=== PATIENT | male | born 1985 | race Caucasian/White ===

== ENCOUNTER 2017-10-16 08:20 | Inpatient (IN) | payer SELFPAY ==
--- NOTE | 2017-10-16 09:28 | ER Document Report ---
ED Medical Screen (RME) - General Chief Complaint: Chest Pain Stated Complaint: CHEST AND ABDOMINAL PAIN Time Seen by Provider: 10/16/17 09:20 Notes: 32-year-old male patient past history of abdominal DVTs, no longer on blood thinners. Does have some chronic pain issues. Previously was on chronic steroids for hematologic reasons, is no longer on steroids. He does suffer from GERD. He reports epigastric chest pain for the past 3 days with some nausea no vomiting. He reported black stools however has been taking Pepto- Bismol. He states he has been constipated and his last bowel movement was about a week ago. Exam shows abdomen to be morbidly obese, soft, some tenderness in the right and left lower quadrants, very tender in the epigastric hypogastric region of the abdomen. Did not appear to be tender in the right upper quadrant. I have greeted and performed a rapid initial assessment of this patient. A comprehensive ED assessment and evaluation of the patient, analysis of test results and completion of the medical decision making process will be conducted by additional ED providers. TRAVEL OUTSIDE OF THE [place] IN LAST 30 DAYS: No - Related Data Allergies/Adverse Reactions: No Known Allergies Allergy (Verified 10/16/17 08:20) Home Medications: Current Home Medications No Home Medications 10/16/17 [History] Past Medical History - Social History Chew tobacco use (# tins/day): No Frequency of alcohol use: None Drug Abuse: None Renal/ Medical History: Denies: Hx Peritoneal Dialysis - Immunizations Hx Diphtheria, Pertussis, Tetanus Vaccination: Yes Physical Exam - Vital signs Vitals: Temp Pulse Resp BP Pulse Ox 98.7 F 91 22 H 143/106 H 97 10/16/17 08:25 10/16/17 08:25 10/16/17 08:25 10/16/17 08:25 10/16/17 08:25 Course - Vital Signs Vital signs: Temp Pulse Resp BP Pulse Ox 98.7 F 91 22 H 143/106 H 97 10/16/17 08:25 10/16/17 08:25 10/16/17 08:25 10/16/17 08:25 10/16/17 08:25
[2017-10-16] MEDS ORDERED: MAG HYDROX/AL HYDROX/SIMETH SUSP 30 ML UDCUP PO ONE (09:35)
[2017-10-16] MEDS ORDERED: LIDOCAINE 2% VISCOUS SOLN 20 ML UDCUP PO ONE (09:35)
[2017-10-16 09:49] LABS: ABSOLUTE BASOPHILS # (AUTO) 0.1 10^3/uL (0.0-0.2); ABSOLUTE EOSINOPHILS # (AUTO) 0.4 10^3/uL (0.0-0.6); ABSOLUTE LYMPHOCYTES (AUTO) 2.2 10^3/uL (0.5-4.7); ABSOLUTE NEUT (AUTO) 8.5 10^3/uL (1.7-8.2); BASOPHILS % (AUTO) 0.9 % (0-2); EOSINOPHILS % (AUTO) 3.6 % (0-6); HEMATOCRIT 54.3 % (37.9-51.0); HEMOGLOBIN 18.7 g/dL (13.5-17.0); LYMPHOCYTES % (AUTO) 17.9 % (13-45); MEAN CORPUSCULAR HEMOGLOBIN 30.4 pg (27.0-33.4); MEAN CORPUSCULAR HGB CONC 34.4 g/dL (32.0-36.0); MEAN CORPUSCULAR VOLUME 88 fl (80-97); MONOCYTES % (AUTO) 7.8 % (3-13); PLATELET COUNT 502 10^3/uL (150-450); RED BLOOD COUNT 6.15 10^6/uL (4.35-5.55); RED CELL DISTRIBUTION WIDTH 15.6 % (11.5-14.0); SEGMENTED NEUTROPHILS % (AUTO) 69.8 % (42-78); TOTAL CELLS COUNTED % (AUTO) 100 %; WHITE BLOOD COUNT 12.2 10^3/uL (4.0-10.5)
[2017-10-16 10:06] LABS: ALANINE AMINOTRANSFERASE 258 U/L (21-72); ALBUMIN 4.8 g/dL (3.5-5.0); ALKALINE PHOSPHATASE 145 U/L (38-126); ANION GAP 13 (5-19); ASPARTATE AMINO TRANSFERASE 357 U/L (17-59); BLOOD UREA NITROGEN 12 mg/dL (7-20); CALCIUM 10.5 mg/dL (8.4-10.2); CARBON DIOXIDE 28 mmol/L (22-30); CHLORIDE 101 mmol/L (98-107); GLUCOSE 107 mg/dL (75-110); LIPASE 102.8 U/L (23-300); POTASSIUM 4.9 mmol/L (3.6-5.0); TOTAL PROTEIN 8.4 g/dL (6.3-8.2)
--- NOTE | 2017-10-16 10:19 | RADIOLOGY REPORT (SQ) ---
EXAM DESCRIPTION: ACUTE ABDOMEN SERIES COMPLETED DATE/TIME: 10/16/2017 10:08 am REASON FOR STUDY: epigastric pain, constipation COMPARISON: CT abdomen pelvis 07/14/2015, 08/24/2015, 01/20/2016 NUMBER OF VIEWS: Three views. TECHNIQUE: Frontal chest, supine abdomen and upright abdomen radiographic images acquired. LIMITATIONS: None. FINDINGS: CHEST: Lungs clear of infiltrates. No pleural effusions. No pneumothorax. Cardiac silho uette size, brenda unremarkable. FREE AIR: None. No abnormal gas collections. BOWEL GAS PATTERN: Nonobstructive pattern. No dilated loops or air fluid levels. Moderate to large a mount of stool in the hepatic flexure and transverse colon. CALCIFICATIONS: No suspicious calcifications. HARDWARE: None in the abdomen. SOFT TISSUES: No gross mass or suggestion of organomegaly. BONES: No acute fracture. No worrisome bone lesions. OTHER: No other significant finding. IMPRESSION: NO RADIOGRAPHIC EVIDENCE FOR ACUTE ABDOMINAL DISEASE. Moderate to large amount of stool in the hepatic flexure and transverse colon TECHNICAL DOCUMENTATION: JOB ID: [id number] [employer]- All Rights Reserved
[2017-10-16] MEDS ORDERED: ONDANSETRON HCL INJ/PF 4 MG/2 ML SDV IV ONE (10:41)
[2017-10-16] MEDS ORDERED: MORPHINE SULFATE 10 MG/ML INJ IV ONE ×3 (10:42→14:39)
[2017-10-16] MEDS ORDERED: FAMOTIDINE INJ/PF 20 MG/2 ML SDV IV ONE ×2 (10:42→18:45)
[2017-10-16 10:50] LABS: APPEARANCE,URINE CLEAR; BILIRUBIN,URINE SMALL (NEGATIVE); COLOR,URINE AMBER; GLUCOSE, URINE NEGATIVE (NEGATIVE); KETONES,URINE NEGATIVE (NEGATIVE); LEUKOCYTE ESTERASE,URINE NEGATIVE (NEGATIVE); NITRITE,URINE NEGATIVE (NEGATIVE); PROTEIN,URINE 30 mg/dL (NEGATIVE); URINE SPECIFIC GRAVITY 1.018
[2017-10-16] MEDS: RINGERS SOLUTION,LACTATED 1,000 ML IV PRN ×2 (10:50→15:53)
--- NOTE | 2017-10-16 11:01 | ER Document Report ---
ED GI/ - General Chief Complaint: Chest Pain Stated Complaint: CHEST AND ABDOMINAL PAIN Time Seen by Provider: 10/16/17 09:20 Notes: Patient is here complaining of pain in the epigastric region of his abdomen which started Sunday. He says the pain is constant and sharp and goes through into his back. He has had this previously, but not this bad. Denies fever. Nauseated but not vomiting. Has not had any diarrhea. Has felt constipated during the past week. He had a bowel movement yesterday. Has not seen any blood in his stools. His stools have been black, but he started taking Pepto- Bismol on Sunday. No history of any gastrointestinal diseases or GI bleeding. 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 Patient says he had a blood clot in his "stomach" after he had a splenectomy. Was on Xarelto for a while, but not currently on any anticoagulants. Denies diabetes, hypertension, heart disease, etc. Denies alcohol intake. TRAVEL OUTSIDE OF THE [place] IN LAST 30 DAYS: No - Related Data Allergies/Adverse Reactions: No Known Allergies Allergy (Verified 10/16/17 08:20) Home Medications: Current Home Medications No Home Medications 10/16/17 [History] Past Medical History - Social History Smoking Status: Current Every Day Smoker Chew tobacco use (# tins/day): No Frequency of alcohol use: None Drug Abuse: None Family History: Reviewed & Not Pertinent Patient has suicidal ideation: No Patient has homicidal ideation: No Past Surgical History: Reports: Hx Abdominal Surgery - Splenectomy 2015 - Immunizations Hx Diphtheria, Pertussis, Tetanus Vaccination: Yes Hx Pneumococcal Vaccination: 05/11/15 Review of Systems - Review of Systems Notes: REVIEW OF SYSTEMS: CONSTITUTIONAL : Denies fever. EENT: Denies eye, ear, nose or mouth or throat pain or other symptoms. CARDIOVASCULAR: Denies chest pain. RESPIRATORY: Says he has difficulty breathing, but denies cough, chest congestion. GASTROINTESTINAL: See HPI. GENITOURINARY: Denies difficulty or painful urinating, urinary frequency, blood in urine. MUSCULOSKELETAL: Denies back or neck pain. Denies joint pain or swelling. ````` SKIN: Denies rash or skin lesions. NEUROLOGICAL: Denies LOC or altered mental status. Denies headache. Denies sensory loss or motor deficits. ALL OTHER SYSTEMS REVIEWED AND NEGATIVE. Physical Exam - Vital signs Vitals: Temp Pulse Resp BP Pulse Ox 98.7 F 91 22 H 143/106 H 97 10/16/17 08:25 10/16/17 08:25 10/16/17 08:25 10/16/17 08:25 10/16/17 08:25 Interpretation: Normal, Hypertensive - Mild - Notes Notes: PHYSICAL EXAMINATION: GENERAL: moaning and seems to be in pain. Weighs 172 kg. HEAD: Atraumatic, normocephalic. EYES: Pupils equal round and reactive to light, extraocular movements intact. ENT: oropharynx clear without exudates. Moist mucous membranes. NECK: Normal range of motion, supple. LUNGS: Breath sounds clear and equal bilaterally. HEART: Regular rate and rhythm without murmurs. ABDOMEN: Soft, tender in the epigastrium. No guarding or rebound. No masses. No bruits heard. No lower abdominal tenderness. BACK: No tenderness throughout entire back. EXTREMITIES: Normal range of motion without pain. NEUROLOGICAL: Normal speech, normal gait. Normal sensory, motor, and reflex exams. Awake, alert, and oriented x3. Cranial nerves normal. PSYCH: Normal mood, normal affect. SKIN: Warm, dry, no rashes. Course - Re-evaluation Re-evalutation: 10/16/17 18:47 Patient continued to have severe pains in spite of being given 10 mg of morphine IV initially followed by 2 doses of 8 mg of morphine IV. His lab results showed slight elevation of his white count and some slight elevation of LFTs. Lipase normal. CT scan of the abdomen showed gallstones. Also some pericholecystic fluid. Ultrasound was then ordered which showed the gallstones and thickening of the gallbladder wall. Dr. Case was contacted and examined the patient and will admit him. - Vital Signs Vital signs: Temp Pulse Resp BP Pulse Ox 98.7 F 91 23 H 134/95 H 95 10/16/17 08:25 10/16/17 08:25 10/16/17 18:17 10/16/17 18:17 10/16/17 18:17 - Laboratory Result Diagrams: 10/16/17 09:34 10/16/17 09:34 Laboratory results interpreted by me: 10/16/17 10/16/17 10/16/17 09:34 09:34 10:10 WBC 12.2 H RBC 6.15 H Hgb 18.7 H Hct 54.3 H RDW 15.6 H Plt Count 502 H Absolute Neutrophils 8.5 H Calcium 10.5 H Total Bilirubin 4.0 H Direct Bilirubin 3.0 H AST 357 H ALT 258 H Alkaline Phosphatase 145 H Total Protein 8.4 H Urine Protein 30 H Urine Blood LARGE H Urine Bilirubin SMALL H Urine Urobilinogen 2.0 H - Diagnostic Test Radiology reviewed: Image reviewed, Reports reviewed - Abdominal series is essentially normal except for moderate amount of stool in the hepatic flexure and transverse colon. CT of the abdomen shows gallstones and pericholecystic fluid. Ultrasound of the right upper quadrant shows gallstones and thickening of the gallbladder wall. Discharge - Discharge Clinical Impression: Abdominal pain, Cholelithiasis with acute cholecystitis with biliary obstruction Condition: Stable Disposition: ADMITTED INPATIENT Admitting Provider: Surgicalist Unit Admitted: Surgical Floor
--- NOTE | 2017-10-16 13:11 | EKG REPORT ---
SEVERITY:- NORMAL ECG - SINUS RHYTHM : Confirmed by: Alexis Alcantar MD 16-Oct-2017 13:10:45
--- NOTE | 2017-10-16 14:34 | RADIOLOGY REPORT (SQ) ---
EXAM DESCRIPTION: CT ABD/PELVIS WITH IV ORAL COMPLETED DATE/TIME: 10/16/2017 2:16 pm REASON FOR STUDY: Epig pain,splenect,elev LFT,Hx clot "stomach" COMPARISON: CT abdomen pelvis 07/14/2015, 08/24/2015, 01/20/2016 TECHNIQUE: CT scan of the abdomen and pelvis performed using helical scanning technique with dynamic intravenous contrast injection. Patient drank oral contrast. Images reviewed with lung, soft tissue , and bone windows. Reconstructed coronal and sagittal MPR images reviewed. Delayed images for evalua tion of the urinary system also acquired. All images stored on PACS. All CT scanners at this facility use dose modulation, iterative reconstruction, and/or weight based d osing when appropriate to reduce radiation dose to as low as reasonably achievable (ALARA). [facility]: Dose Right [facility]: CareDose [facility]: Dose Right [facility]: Teradose 4D [facility]: [employer] CONTRAST TYPE AND DOSE: contrast/concentration: Isovue 370.00 mg/ml; Total Contrast Delivered: 99.0 ml; Total Saline Delivered: 62.1 ml RENAL FUNCTION: Creatinine 1.0 RADIATION DOSE: CT Rad equipment meets quality standard of care and radiation dose reduction techniq ues were employed. CTDIvol: 21.1 mGy. DLP: 2743 mGy-cm.. LIMITATIONS: Very large patient FINDINGS: LOWER CHEST: No significant findings. No nodules or infiltrates. LIVER: Liver is normal size. No focal masses. Somewhat heterogeneous perfusion pattern on the immediate postcontrast images. Patient has a history of portal vein thrombosis in 2015. There are multiple vessels at the francesco hepatis with contrast en hancement likely recannalized main portal vein and collaterals. Along the inferior edge of the left lobe liver near the falciform ligament, just ventral to the gallb ladder fossa there is a thick walled fluid filled cystic structure measuring about 3.4 cm in greatest diameter. This is smaller than on previous multiple CT exams and could represent an old hematoma or seroma. SPLEEN: Surgically absent PANCREAS: No masses. No significant calcifications. No adjacent inflammation or peripancreatic fluid collections. Pancreatic duct not dilated. GALLBLADDER: Contracted. Question trace pericholecystic fluid. Gallbladder ultrasound may be useful for followup ADRENAL GLANDS: No significant masses or asymmetry. RIGHT KIDNEY AND URETER: No solid masses. No significant calcifications. No hydronephrosis or hyd roureter. LEFT KIDNEY AND URETER: No solid masses. No significant calcifications. No hydronephrosis or hydr oureter. AORTA AND VESSELS: No aneurysm. No dissection. Renal arteries, SMA, celiac without stenosis. RETROPERITONEUM: No retroperitoneal adenopathy, hemorrhage or masses. BOWEL AND PERITONEAL CAVITY: Oral contrast throughout the gastrointestinal tract in a nonobstructive pattern. No colonic diverticulosis. No masses or inflammatory changes. No free fluid or peritoneal masses. APPENDIX: Normal. PELVIS: No mass. No free fluid. Normal bladder. ABDOMINAL WALL: No masses. No hernias. BONES: No significant or acute findings. OTHER: Report discussed with Dr. Del Toro in the emergency room IMPRESSION: Post splenectomy Recannulized portal vein thrombosis Question trace pericholecystic fluid. Consider gallbladder ultrasound for followup TECHNICAL DOCUMENTATION: JOB ID: [id number] Quality ID # [id number]: Final reports with documentation of one or more dose reduction techniques (e.g., Au tomated exposure control, adjustment of the mA and/or kV according to patient size, use of iterative reconstruction technique) 2010 [employer]- All Rights Reserved
--- NOTE | 2017-10-16 17:13 | RADIOLOGY REPORT (SQ) ---
EXAM DESCRIPTION: U/S ABDOMEN LIMITED W/O DOP COMPLETED DATE/TIME: 10/16/2017 5:02 pm REASON FOR STUDY: Epigastric pain with mild elevation in LFTs COMPARISON: CT abdomen pelvis 10/16/2016, 01/19/2017, 08/24/2015 TECHNIQUE: Dynamic and static grayscale images acquired of the abdomen and recorded on PACS. Additio nal selected color Doppler and spectral images recorded. LIMITATIONS: Large patient. Midline upper abdominal bowel gas FINDINGS: PANCREAS: Not visualized LIVER: Normal size. No gross masses. Difficult to penetrate with the ultrasound energy from fatty i nfiltration LIVER VASCULATURE: Unable to visualize the main portal vein due to technical factors GALLBLADDER: Diffuse gallbladder wall thickening, 5 to 7 mm in the left. There are tiny stones in th e gallbladder fundus. ULTRASOUND-DETECTED TEJEDA'S SIGN: Patient medicated INTRAHEPATIC DUCTS AND COMMON DUCT: Common duct at the francesco hepatis not well seen due to technical f actors INFERIOR VENA CAVA: Not well see AORTA: Not well seen RIGHT KIDNEY: Normal size. Normal echogenicity. No solid or suspicious masses. No hydronephrosis. No calcifications. PERITONEAL AND RIGHT PLEURAL SPACE: No ascites or effusions. OTHER: No other significant findings. IMPRESSION: Tiny stones in the gallbladder fundus. Gallbladder wall thickening Echogenic liver difficult to penetrate with the ultrasound energy from fatty infiltration Main portal vein, pancreas, abdominal aorta not well seen due to midline bowel gas and large body hab itus TECHNICAL DOCUMENTATION: JOB ID: [id number] [employer]- All Rights Reserved
--- NOTE | 2017-10-16 18:23 | PDOC H&P ---
History of Present Illness Admission Date/PCP: 10/16/17 Patient complains of: abdominal pains History of Present Illness: COSMO GRADY JR is a 32 year old male c/o off and on epigastric pains radiating to the back for the past week after eating greasy food.Pains worse past 2 days associated with nausea. His urine is highly colored according to pt and . Denies fever/chills. Past Medical History Hematology: Reports: Anemia Hematology History Note: Hemolytic anemia. Had splenectomy in [facility] 3 years ago. Past Surgical History Past Surgical History: Reports: Splenectomy Social History Smoking Status: Current Every Day Smoker Cigarettes Packs Per Day: 1 Frequency of Alcohol Use: None Hx Recreational Drug Use: No Family History Family History: Reviewed & Not Pertinent Parental Family History Reviewed: Yes - Both parents are alive and well Children Family History Reviewed: No Sibling(s) Family History Reviewed.: No Medication/Allergy Home Medications: No Home Medications 10/16/17 Allergies/Adverse Reactions: No Known Allergies Allergy (Verified 10/16/17 08:20) Review of Systems Constitutional: PRESENT: other - no fever/chills Eyes: PRESENT: other - no visual/hearing problems Cardiovascular: PRESENT: other - some chest pains Respiratory: PRESENT: cough Gastrointestinal: PRESENT: abdominal pain, nausea Genitourinary: PRESENT: other - no dysuria Musculoskeletal: PRESENT: back pain Integumentary: PRESENT: other - no rash Neurological: PRESENT: other - no seizures Psychiatric: PRESENT: other - no anxiety Endocrine: PRESENT: other - no polyuria Hematologic/Lymphatic: PRESENT: other - no easy bruisability Physical Exam Vital Signs: Temp Pulse Resp BP Pulse Ox 98.7 F 91 17 142/109 H 95 10/16/17 08:25 10/16/17 08:25 10/16/17 14:40 10/16/17 14:40 10/16/17 14:40 Intake & Output 10/15/17 10/16/17 10/17/17 06:59 06:59 06:59 Weight 171.9 kg General appearance: PRESENT: mild distress Head exam: PRESENT: atraumatic Eye exam: PRESENT: conjunctiva pink Mouth exam: PRESENT: moist, tongue midline Neck exam: PRESENT: full ROM Respiratory exam: PRESENT: clear to auscultation tara Cardiovascular exam: PRESENT: RRR Pulses: PRESENT: normal radial pulses Vascular exam: PRESENT: normal capillary refill GI/Abdominal exam: PRESENT: soft, tenderness - epigastric and RUQ Rectal exam: PRESENT: deferred Extremities exam: PRESENT: full ROM Musculoskeletal exam: PRESENT: ambulatory Neurological exam: PRESENT: alert, oriented to person, oriented to place, oriented to time, oriented to situation Psychiatric exam: PRESENT: appropriate affect Skin exam: PRESENT: normal color, warm Results Laboratory Results: 10/16/17 09:34 10/16/17 09:34 10/16/17 10/16/17 10/16/17 09:34 09:34 10:10 WBC 12.2 H RBC 6.15 H Hgb 18.7 H Hct 54.3 H MCV 88 MCH 30.4 MCHC 34.4 RDW 15.6 H Plt Count 502 H Seg Neutrophils % 69.8 Lymphocytes % 17.9 Monocytes % 7.8 Eosinophils % 3.6 Basophils % 0.9 Absolute Neutrophils 8.5 H Absolute Lymphocytes 2.2 Absolute Monocytes 1.0 Absolute Eosinophils 0.4 Absolute Basophils 0.1 Sodium 142.0 Potassium 4.9 Chloride 101 Carbon Dioxide 28 Anion Gap 13 BUN 12 Creatinine 1.02 Est GFR ( Amer) > 60 Est GFR (Non-Af Amer) > 60 Glucose 107 Calcium 10.5 H Total Bilirubin 4.0 H AST 357 H ALT 258 H Alkaline Phosphatase 145 H Total Protein 8.4 H Albumin 4.8 Lipase 102.8 Urine Color STEPHAN Urine Appearance CLEAR Urine pH 5.0 Ur Specific [place] 1.018 Urine Protein 30 H Urine Glucose (UA) NEGATIVE Urine Ketones NEGATIVE Urine Blood LARGE H Urine Nitrite NEGATIVE Ur Leukocyte Esterase NEGATIVE Urine WBC (Auto) 19 Urine RBC (Auto) 26 Impressions: Abdomen/Pelvis CT 10/16/17 00:00 IMPRESSION: Post splenectomy Recannulized portal vein thrombosis Question trace pericholecystic fluid. Consider gallbladder ultrasound for followup Acute Abdomen Series 10/16/17 09:26 IMPRESSION: NO RADIOGRAPHIC EVIDENCE FOR ACUTE ABDOMINAL DISEASE. Moderate to large amount of stool in the hepatic flexure and transverse colon Abdomen Ultrasound 10/16/17 14:29 IMPRESSION: Tiny stones in the gallbladder fundus. Gallbladder wall thickening Echogenic liver difficult to penetrate with the ultrasound energy from fatty infiltration Main portal vein, pancreas, abdominal aorta not well seen due to midline bowel gas and large body habitus Assessment & Plan - Diagnosis (1) Cholelithiasis with acute cholecystitis with biliary obstruction Is this a current diagnosis for this admission?: Yes (2) Constipation Is this a current diagnosis for this admission?: Yes (3) Hyperbilirubinemia Is this a current diagnosis for this admission?: Yes (4) Leukocytosis Is this a current diagnosis for this admission?: Yes (5) Obesity Qualifiers: Obesity type: unspecified obesity type Obesity classification: adult class 3 (BMI >= 40) Serious obesity comorbidity presence: without serious comorbidity Body mass index: BMI 45.0-49.9 Qualified Code(s): E66.9 - Obesity, unspecified; Z68.42 - Body mass index (BMI) 45.0-49.9, adult; Z68.42 - Body mass index (BMI) 45.0-49.9, adult; Z68.42 - Body mass index (BMI) 45.0-49.9 , adult; Z68.42 - Body mass index (BMI) 45.0-49.9, adult (6) Tobacco use disorder Is this a current diagnosis for this admission?: Yes - Time Time Spent: 30 to 50 Minutes - Inpatient Certification Medical Necessity: Need For IV Fluids, Need for Pain Control, Need for IV Antibiotics, Need for Surgery, Risk of Complication if Not Cared For in Hospital - Plan Summary Plan Summary: Consult [facility] for ERCP Start IV antibiotics Hydrate Keep NPO Pain mx
[2017-10-16] MEDS ORDERED: PIPERACILLIN/TAZOBACTAM 3.375 GM VIAL IV SCH (18:30)
[2017-10-16] MEDS ORDERED: ONDANSETRON HCL INJ/PF 4 MG/2 ML SDV IV SCH (18:30)
[2017-10-16] MEDS ORDERED: FAMOTIDINE INJ/PF 20 MG/2 ML SDV IV SCH (18:45)
[2017-10-16] MEDS ORDERED: HYDROMORPHONE HCL INJ/PF 2 MG/ML AMPULE IV SCH (20:00)
[2017-10-16] MEDS ORDERED: ACETAMINOPHEN 325 MG TABLET ONE (21:16)
[2017-10-16] MEDS ORDERED: ACETAMINOPHEN 325 MG TABLET PO ONE (21:30)
[2017-10-16] MEDS: PIPERACILLIN SODIUM/TAZOBACTAM 3.375 GM in NORMAL SALINE 100 ML IV SCH (21:52)
[2017-10-16] MEDS: NORMAL SALINE 1000 ML 1,000 ML IV PRN (21:53)
[2017-10-16] MEDS ORDERED: INFLUENZA ADLT QUAD (36MOS+) 2017-18 VAC 0.5 ML SYR IM PRN (22:09)
[2017-10-16] MEDS: HYDROMORPHONE HCL INJ/PF 2 MG/ML AMPULE IV PRN (22:56)
[2017-10-17] MEDS: HYDROMORPHONE HCL INJ/PF 2 MG/ML AMPULE IV PRN ×8 (02:02→23:54)
[2017-10-17] MEDS: PIPERACILLIN SODIUM/TAZOBACTAM 3.375 GM in NORMAL SALINE 100 ML IV SCH ×4 (02:03→21:48)
[2017-10-17] MEDS: ONDANSETRON HCL INJ/PF 4 MG/2 ML SDV IV PRN ×3 (02:08→14:32)
[2017-10-17] MEDS: DIPHENHYDRAMINE HCL 50 MG/ML VIAL IV PRN (03:34)
[2017-10-17] MEDS: NORMAL SALINE 1000 ML 1,000 ML IV PRN (04:46)
[2017-10-17 06:49] LABS: ABSOLUTE BASOPHILS # (AUTO) 0.1 10^3/uL (0.0-0.2); ABSOLUTE EOSINOPHILS # (AUTO) 0.5 10^3/uL (0.0-0.6); ABSOLUTE LYMPHOCYTES (AUTO) 2.7 10^3/uL (0.5-4.7); ABSOLUTE MONOCYTES (AUTO) 0.8 10^3/uL (0.1-1.4); ABSOLUTE NEUT (AUTO) 6.4 10^3/uL (1.7-8.2); BASOPHILS % (AUTO) 1.2 % (0-2); EOSINOPHILS % (AUTO) 4.6 % (0-6); HEMATOCRIT 50.4 % (37.9-51.0); HEMOGLOBIN 17.3 g/dL (13.5-17.0); LYMPHOCYTES % (AUTO) 25.5 % (13-45); MEAN CORPUSCULAR HGB CONC 34.3 g/dL (32.0-36.0); MEAN CORPUSCULAR VOLUME 88 fl (80-97); MONOCYTES % (AUTO) 7.3 % (3-13); PLATELET COUNT 379 10^3/uL (150-450); RED BLOOD COUNT 5.76 10^6/uL (4.35-5.55); RED CELL DISTRIBUTION WIDTH 15.5 % (11.5-14.0); SEGMENTED NEUTROPHILS % (AUTO) 61.4 % (42-78); TOTAL CELLS COUNTED % (AUTO) 100 %; WHITE BLOOD COUNT 10.4 10^3/uL (4.0-10.5)
[2017-10-17 07:07] LABS: ALANINE AMINOTRANSFERASE 337 U/L (21-72); ALKALINE PHOSPHATASE 162 U/L (38-126); ANION GAP 11 (5-19); ASPARTATE AMINO TRANSFERASE 328 U/L (17-59); BILIRUBIN,DIRECT 4.1 mg/dL (0.0-0.4); BILIRUBIN,TOTAL 5.1 mg/dL (0.2-1.3); BLOOD UREA NITROGEN 9 mg/dL (7-20); CARBON DIOXIDE 28 mmol/L (22-30); CHLORIDE 103 mmol/L (98-107); GLUCOSE 100 mg/dL (75-110); LIPASE 54.4 U/L (23-300); POTASSIUM 4.7 mmol/L (3.6-5.0); SODIUM 142.4 mmol/L (137-145); TOTAL PROTEIN 7.3 g/dL (6.3-8.2)
[2017-10-17] MEDS: FAMOTIDINE INJ/PF 20 MG/2 ML SDV IV SCH (09:12)
[2017-10-17] MEDS: NICOTINE 21 MG/24 HR PATCH.TD24 TD SCH (09:50)
[2017-10-17] MEDS ORDERED: DIPHENHYDRAMINE HCL 25 MG CAPSULE ONE (10:03)
[2017-10-17] MEDS ORDERED: GLYCOPYRROLATE INJ 0.4 MG/2 ML VIAL ONE (10:57)
[2017-10-17] MEDS ORDERED: ROCURONIUM BROMIDE INJ 50 MG/5 ML VIAL IV ONE (10:57)
[2017-10-17] MEDS ORDERED: DEXAMETHASONE SOD PHOSPHATE INJ 4 MG/1 ML VIAL ONE (10:57)
[2017-10-17] MEDS ORDERED: SUCCINYLCHOLINE CHLORIDE INJ 200 MG/10 ML VIAL ONE (10:57)
[2017-10-17] MEDS ORDERED: NEOSTIGMINE METHYLSULFATE 10 MG/10 ML VIAL ONE (10:57)
--- NOTE | 2017-10-17 13:58 | PDOC PROGRESS REPORT ---
Subjective Progress Note for:: 10/17/17 Subjective:: still with abdominal pains Reason For Visit: CHOLELITHIASIS, CHOLECYSTITIS, COMMON BILE DUCT Physical Exam Vital Signs: Temp Pulse Resp BP Pulse Ox 97.3 F 77 18 143/94 H 97 10/17/17 11:31 10/17/17 11:31 10/17/17 11:31 10/17/17 11:31 10/17/17 11:31 Intake & Output 10/16/17 10/17/17 10/18/17 06:59 06:59 06:59 Output Total 650 Balance -650 Weight 177.6 kg 177.6 kg Exam: Abdomen is soft with mild epigastric tenderness Results Laboratory Results: 10/17/17 06:29 10/17/17 06:29 10/17/17 10/17/17 06:29 06:29 WBC 10.4 RBC 5.76 H Hgb 17.3 H Hct 50.4 MCV 88 MCH 30.0 MCHC 34.3 RDW 15.5 H Plt Count 379 Seg Neutrophils % 61.4 Lymphocytes % 25.5 Monocytes % 7.3 Eosinophils % 4.6 Basophils % 1.2 Absolute Neutrophils 6.4 Absolute Lymphocytes 2.7 Absolute Monocytes 0.8 Absolute Eosinophils 0.5 Absolute Basophils 0.1 Sodium 142.4 Potassium 4.7 Chloride 103 Carbon Dioxide 28 Anion Gap 11 BUN 9 Creatinine 1.03 Est GFR ( Amer) > 60 Est GFR (Non-Af Amer) > 60 Glucose 100 Calcium 10.0 Total Bilirubin 5.1 H AST 328 H ALT 337 H Alkaline Phosphatase 162 H Total Protein 7.3 Albumin 4.0 Lipase 54.4 Impressions: Abdomen/Pelvis CT 10/16/17 00:00 IMPRESSION: Post splenectomy Recannulized portal vein thrombosis Question trace pericholecystic fluid. Consider gallbladder ultrasound for followup Acute Abdomen Series 10/16/17 09:26 IMPRESSION: NO RADIOGRAPHIC EVIDENCE FOR ACUTE ABDOMINAL DISEASE. Moderate to large amount of stool in the hepatic flexure and transverse colon Abdomen Ultrasound 10/16/17 14:29 IMPRESSION: Tiny stones in the gallbladder fundus. Gallbladder wall thickening Echogenic liver difficult to penetrate with the ultrasound energy from fatty infiltration Main portal vein, pancreas, abdominal aorta not well seen due to midline bowel gas and large body habitus Assessment & Plan - Diagnosis (1) Cholelithiasis with acute cholecystitis with biliary obstruction Is this a current diagnosis for this admission?: Yes (2) Constipation Is this a current diagnosis for this admission?: Yes (3) Hyperbilirubinemia Is this a current diagnosis for this admission?: Yes (4) Leukocytosis Is this a current diagnosis for this admission?: Yes (5) Obesity Qualifiers: Obesity type: unspecified obesity type Obesity classification: adult class 3 (BMI >= 40) Serious obesity comorbidity presence: without serious comorbidity Body mass index: BMI 45.0-49.9 Qualified Code(s): E66.9 - Obesity, unspecified; Z68.42 - Body mass index (BMI) 45.0-49.9, adult; Z68.42 - Body mass index (BMI) 45.0-49.9, adult; Z68.42 - Body mass index (BMI) 45.0-49.9 , adult; Z68.42 - Body mass index (BMI) 45.0-49.9, adult (6) Tobacco use disorder Is this a current diagnosis for this admission?: Yes - Time Time Spent with patient: 15-24 minutes - Inpatient Certification Medical Necessity: Need For IV Fluids, Need for Pain Control, Need for IV Antibiotics, Need for Surgery - Plan Summary Plan Summary: For ERCP today by Dr Pendleton Continue IV antibiotics
[2017-10-17] MEDS ORDERED: GLUCAGON,HUMAN RECOMB 1 MG INJ ONE (17:33)
[2017-10-17] MEDS ORDERED: METOCLOPRAMIDE HCL INJ/PF 10 MG/2 ML SDV ONE (17:43)
[2017-10-17] MEDS ORDERED: FAMOTIDINE INJ/PF 20 MG/2 ML SDV IV ONE (17:44)
[2017-10-17] MEDS ORDERED: IPRATROPIUM/ALBUTEROL 0.5-2.5 MG/3 ML AMPUL NEB ONE (17:45)
--- NOTE | 2017-10-17 18:20 | PDOC CONSULTATION ---
Consultation Consult Date: 10/17/17 History of Present Illness Admission Date/PCP: 10/16/17 18:59 History of Present Illness: This is a 32-year-old patient who was admitted to the emergency room with recurrent abdominal pain for the last few months. He has had 3 episodes so far with pain in the epigastrium radiating to the back had some nausea but no vomiting, lasting for 5-7 days at a time. He has not had any nausea or vomiting with any of the episodes. On admission his bilirubin was 4 with AST of 02/07/1955, ALT 258 and alkaline phosphatase of 145. Lipase was normal. His ultrasound showed tiny gallstones in the gallbladder with some gallbladder wall thickening. He also has a fatty liver. A CAT scan of the abdomen shows a previous splenectomy, recanalized portal vein thrombosis and trace pericholecystic fluid Past Medical History Hematology: Reports: Anemia Past Surgical History Past Surgical History: Reports: Splenectomy Social History Smoking Status: Current Every Day Smoker Cigarettes Packs Per Day: 1 Frequency of Alcohol Use: None Hx Recreational Drug Use: No Drugs: None Hx Prescription Drug Abuse: No - Advance Directive Resuscitation Status: Full Code Family History Family History: Reviewed & Not Pertinent Parental Family History Reviewed: No Children Family History Reviewed: NA Sibling(s) Family History Reviewed.: NA Medication/Allergy Home Medications: No Home Medications 10/17/17 Allergies/Adverse Reactions: No Known Allergies Allergy (Verified 10/16/17 08:20) Review of Systems All systems: reviewed and no additional remarkable complaints except as stated Physical Exam Vital Signs: Temp Pulse Resp BP Pulse Ox 97.6 F 83 21 H 138/90 H 100 10/17/17 17:15 10/17/17 17:15 10/17/17 17:15 10/17/17 17:15 10/17/17 17:15 Intake & Output 10/16/17 10/17/17 10/18/17 06:59 06:59 06:59 Output Total 650 Balance -650 Weight 177.6 kg 177.6 kg Exam: General: Patient is alert and looks well. He is massively obese HEENT: There is no pallor but he is jaundiced. PERRLA. Oropharynx normal Respiratory: No chest deformity. No respiratory distress. Chest wall palpitation was unremarkable. Breath sounds were normal Cardiovascular: Heart sounds 1 and 2 normal with no murmurs. Abdominal: Not distended. Soft and nontender. Liver and spleen not palpable. No ascites demonstrated. Bowel sounds active. Rectal examination was deferred. Extremities: No edema Neurological: Alert and oriented x4. Grossly nonfocal. Normal speech Skin: No significant rash Psychological: Normal affect Results Laboratory Results: 10/17/17 06:29 10/17/17 06:29 10/17/17 10/17/17 06:29 06:29 WBC 10.4 RBC 5.76 H Hgb 17.3 H Hct 50.4 MCV 88 MCH 30.0 MCHC 34.3 RDW 15.5 H Plt Count 379 Seg Neutrophils % 61.4 Lymphocytes % 25.5 Monocytes % 7.3 Eosinophils % 4.6 Basophils % 1.2 Absolute Neutrophils 6.4 Absolute Lymphocytes 2.7 Absolute Monocytes 0.8 Absolute Eosinophils 0.5 Absolute Basophils 0.1 Sodium 142.4 Potassium 4.7 Chloride 103 Carbon Dioxide 28 Anion Gap 11 BUN 9 Creatinine 1.03 Est GFR ( Amer) > 60 Est GFR (Non-Af Amer) > 60 Glucose 100 Calcium 10.0 Total Bilirubin 5.1 H AST 328 H ALT 337 H Alkaline Phosphatase 162 H Total Protein 7.3 Albumin 4.0 Lipase 54.4 Impressions: Abdomen/Pelvis CT 10/16/17 00:00 IMPRESSION: Post splenectomy Recannulized portal vein thrombosis Question trace pericholecystic fluid. Consider gallbladder ultrasound for followup Acute Abdomen Series 10/16/17 09:26 IMPRESSION: NO RADIOGRAPHIC EVIDENCE FOR ACUTE ABDOMINAL DISEASE. Moderate to large amount of stool in the hepatic flexure and transverse colon Abdomen Ultrasound 10/16/17 14:29 IMPRESSION: Tiny stones in the gallbladder fundus. Gallbladder wall thickening Echogenic liver difficult to penetrate with the ultrasound energy from fatty infiltration Main portal vein, pancreas, abdominal aorta not well seen due to midline bowel gas and large body habitus Assessment & Plan - Diagnosis (1) Jaundice Is this a current diagnosis for this admission?: Yes Plan: His recurrent abdominal pain with gallstones and jaundice is suggestive of choledocholithiasis. The need for an ERCP including the risks and benefits was explained to the patient. He will likely undergo a cholecystectomy thereafter. (4) Cholelithiasis with acute cholecystitis with biliary obstruction Is this a current diagnosis for this admission?: Yes
[2017-10-17] MEDS ORDERED: FENTANYL CITRATE INJ/PF 100 MCG/2 ML AMPUL ONE (18:31)
[2017-10-17] MEDS ORDERED: KETAMINE HCL INJ 500 MG/10 ML VIAL ONE (18:31)
[2017-10-17] MEDS ORDERED: MIDAZOLAM 2 MG/2 ML INJ ONE (18:32)
[2017-10-17] MEDS ORDERED: PROPOFOL INJ 200 MG/20 ML VIAL IV ONE (18:32)
[2017-10-17] MEDS ORDERED: DEXMEDETOMIDINE INJ 80 MCG/20 ML VIAL IV ONE (19:06)
--- NOTE | 2017-10-17 19:33 | Operative Report ---
Operative Report DATE OF SURGERY: 10/17/17 Operative Report: Pre-op diagnosis: Abdominal pain and jaundice Post-op diagnosis: Common bile duct stone Surgery: ERCP with sphincterotomy and balloon stone extraction Medications: As per anesthesia Tissue removed: None Procedure: After informed consent obtained from patient, the throat was sprayed with Hurricane and conscious sedation was achieved. The ERCP endoscope was then inserted into the esophagus blindly and advanced into the stomach. The duodenum was entered and the ampulla was identified. Using the triple-lumen sphincterotomy catheter the common bile duct was freely cannulated. A cholangiogram was obtained which showed a filling defect in the distal common bile duct. The common bile duct and intrahepatic ducts did not appear dilated. A good sized sphincterotomy was then performed using the endocut mode. The catheter was removed over the guidewire before a 9-12 mm balloon catheter was inserted. The balloon was inflated to 12 mm in the proximal common bile duct and pulled down the duct. An 8 mm yellow stone was extracted. The duct was swept one more time. A balloon occlusion cholangiogram was normal. The pancreatic duct was intentionally not cannulated. Patient tolerated procedure well. Findings Common bile duct: 8 mm stone Intrahepatic ducts: Normal Pancreatic duct: Not cannulated Plan: Follow-up LFTs OPERATION: .
[2017-10-17] MEDS ORDERED: PROMETHAZINE HCL INJ 25 MG/1 ML VIAL IV PRN ×2 (19:57)
[2017-10-17] MEDS ORDERED: FENTANYL CITRATE INJ/PF 100 MCG/2 ML AMPUL IV PRN ×3 (19:57)
[2017-10-17] MEDS ORDERED: MORPHINE SULFATE 10 MG/ML INJ IV PRN (19:57)
[2017-10-17] MEDS ORDERED: DIPHENHYDRAMINE HCL 50 MG/ML VIAL IV PRN (19:57)
[2017-10-17] MEDS ORDERED: MEPERIDINE HCL/PF INJ 25 MG/1 ML DISP.SYRIN IV PRN (19:57)
[2017-10-17] MEDS ORDERED: OXYCODONE-ACETAMINOPHEN 5-325 MG TABLET PO PRN ×2 (19:57)
--- NOTE | 2017-10-17 20:54 | RADIOLOGY REPORT (SQ) ---
EXAM DESCRIPTION: NO CHG FLUORO; ENDO CATH/BILIARY DUCT COMPLETED DATE/TIME: 10/17/2017 8:43 pm REASON FOR STUDY: ERCP COMPARISON: None. FLUOROSCOPY TIME: 1.7 minutes. 7 images saved to PACS. TECHNIQUE: Intra-operative images acquired during surgical procedure to evaluate progress. NUMBER OF IMAGES: 7 images. LIMITATIONS: None. FINDINGS: Images acquired during ERCP with catheterization and contrast filling of the biliary syste m. IMPRESSION: IMAGE(S) OBTAINED DURING PROCEDURE. COMMENT: Quality ID [id number]: Final reports for procedures using fluoroscopy that document radiation exp osure indices, or exposure time and number of fluorographic images (if radiation exposure indices are not available) Please consult full operative report of the attending physician for description of the procedure. TECHNICAL DOCUMENTATION: JOB ID: [id number] [employer]- All Rights Reserved
--- NOTE | 2017-10-17 20:54 | RADIOLOGY REPORT (SQ) ---
EXAM DESCRIPTION: NO CHG FLUORO; ENDO CATH/BILIARY DUCT COMPLETED DATE/TIME: 10/17/2017 8:43 pm REASON FOR STUDY: ERCP COMPARISON: None. FLUOROSCOPY TIME: 1.7 minutes. 7 images saved to PACS. TECHNIQUE: Intra-operative images acquired during surgical procedure to evaluate progress. NUMBER OF IMAGES: 7 images. LIMITATIONS: None. FINDINGS: Images acquired during ERCP with catheterization and contrast filling of the biliary syste m. IMPRESSION: IMAGE(S) OBTAINED DURING PROCEDURE. COMMENT: Quality ID [id number]: Final reports for procedures using fluoroscopy that document radiation exp osure indices, or exposure time and number of fluorographic images (if radiation exposure indices are not available) Please consult full operative report of the attending physician for description of the procedure. TECHNICAL DOCUMENTATION: JOB ID: [id number] [employer]- All Rights Reserved
[2017-10-18] MEDS: HYDROMORPHONE HCL INJ/PF 2 MG/ML AMPULE IV PRN ×8 (03:34→23:24)
[2017-10-18] MEDS: PIPERACILLIN SODIUM/TAZOBACTAM 3.375 GM in NORMAL SALINE 100 ML IV SCH ×4 (03:34→20:55)
[2017-10-18] MEDS: NORMAL SALINE 1000 ML 1,000 ML IV PRN ×2 (06:43→18:27)
[2017-10-18 07:23] LABS: HEMATOCRIT 47.9 % (37.9-51.0); HEMOGLOBIN 16.6 g/dL (13.5-17.0); MEAN CORPUSCULAR HEMOGLOBIN 30.3 pg (27.0-33.4); MEAN CORPUSCULAR HGB CONC 34.7 g/dL (32.0-36.0); MEAN CORPUSCULAR VOLUME 88 fl (80-97); PLATELET COUNT 443 10^3/uL (150-450); RED BLOOD COUNT 5.48 10^6/uL (4.35-5.55); RED CELL DISTRIBUTION WIDTH 15.5 % (11.5-14.0); WHITE BLOOD COUNT 17.4 10^3/uL (4.0-10.5)
[2017-10-18 07:49] LABS: ALANINE AMINOTRANSFERASE 243 U/L (21-72); ALKALINE PHOSPHATASE 141 U/L (38-126); ASPARTATE AMINO TRANSFERASE 131 U/L (17-59); BILIRUBIN,DIRECT 0.8 mg/dL (0.0-0.4); BILIRUBIN,TOTAL 1.3 mg/dL (0.2-1.3); TOTAL PROTEIN 7.1 g/dL (6.3-8.2)
[2017-10-18] MEDS: FAMOTIDINE INJ/PF 20 MG/2 ML SDV IV SCH (09:20)
--- NOTE | 2017-10-18 10:17 | PDOC PROGRESS REPORT ---
Subjective Progress Note for:: 10/18/17 Subjective:: Feels better. Minimal abdominal discomfort this morning. Patient was hungry and ate food. Reason For Visit: CHOLELITHIASIS, CHOLECYSTITIS, COMMON BILE DUCT Physical Exam Vital Signs: Temp Pulse Resp BP Pulse Ox 98.7 F 94 20 123/74 97 10/18/17 08:10 10/18/17 08:10 10/18/17 08:10 10/18/17 08:10 10/18/17 08:10 Intake & Output 10/17/17 10/18/17 10/19/17 06:59 06:59 06:59 Intake Total 3080 Output Total 650 700 Balance -650 2380 Weight 177.6 kg 178.5 kg General appearance: PRESENT: no acute distress, cooperative Respiratory exam: PRESENT: clear to auscultation tara Cardiovascular exam: PRESENT: RRR GI/Abdominal exam: PRESENT: other - Soft, nondistended, no significant abdominal tenderness. Results Laboratory Results: 10/18/17 06:58 10/17/17 06:29 10/18/17 10/18/17 06:58 06:58 WBC 17.4 H RBC 5.48 Hgb 16.6 Hct 47.9 MCV 88 MCH 30.3 MCHC 34.7 RDW 15.5 H Plt Count 443 Total Bilirubin 1.3 AST 131 H ALT 243 H Alkaline Phosphatase 141 H Total Protein 7.1 Albumin 4.0 Impressions: Abdomen/Pelvis CT 10/16/17 00:00 IMPRESSION: Post splenectomy Recannulized portal vein thrombosis Question trace pericholecystic fluid. Consider gallbladder ultrasound for followup Acute Abdomen Series 10/16/17 09:26 IMPRESSION: NO RADIOGRAPHIC EVIDENCE FOR ACUTE ABDOMINAL DISEASE. Moderate to large amount of stool in the hepatic flexure and transverse colon Abdomen Ultrasound 10/16/17 14:29 IMPRESSION: Tiny stones in the gallbladder fundus. Gallbladder wall thickening Echogenic liver difficult to penetrate with the ultrasound energy from fatty infiltration Main portal vein, pancreas, abdominal aorta not well seen due to midline bowel gas and large body habitus Catheter Placement 10/17/17 00:00 IMPRESSION: IMAGE(S) OBTAINED DURING PROCEDURE. Fluoroscopy 10/17/17 00:00 IMPRESSION: IMAGE(S) OBTAINED DURING PROCEDURE. Assessment & Plan - Diagnosis (1) Cholelithiasis with acute cholecystitis with biliary obstruction Is this a current diagnosis for this admission?: Yes Plan: Status post ERCP last night. Patient has had marked improvement since ERCP. He does require laparoscopic cholecystectomy. However patient ate despite being placed n.p.o. Patient agrees to being n.p.o. for surgery tomorrow. We will leave the patient on clear liquids through today.
[2017-10-18] MEDS: NICOTINE 21 MG/24 HR PATCH.TD24 TD SCH (10:33)
[2017-10-18] MEDS: DIPHENHYDRAMINE HCL 50 MG/ML VIAL IV PRN (21:36)
[2017-10-19] MEDS: HYDROMORPHONE HCL INJ/PF 2 MG/ML AMPULE IV PRN ×6 (01:39→20:30)
[2017-10-19] MEDS: NORMAL SALINE 1000 ML 1,000 ML IV PRN ×2 (01:41→21:38)
[2017-10-19] MEDS: PIPERACILLIN SODIUM/TAZOBACTAM 3.375 GM in NORMAL SALINE 100 ML IV SCH ×4 (02:01→21:37)
[2017-10-19 08:13] LABS: ALANINE AMINOTRANSFERASE 163 U/L (21-72); ALBUMIN 3.6 g/dL (3.5-5.0); ALKALINE PHOSPHATASE 103 U/L (38-126); ANION GAP 12 (5-19); ASPARTATE AMINO TRANSFERASE 74 U/L (17-59); BILIRUBIN,DIRECT 0.6 mg/dL (0.0-0.4); BLOOD UREA NITROGEN 12 mg/dL (7-20); CALCIUM 9.7 mg/dL (8.4-10.2); CARBON DIOXIDE 25 mmol/L (22-30); CHLORIDE 106 mmol/L (98-107); GLUCOSE 79 mg/dL (75-110); POTASSIUM 4.7 mmol/L (3.6-5.0); SODIUM 143.1 mmol/L (137-145); TOTAL PROTEIN 6.6 g/dL (6.3-8.2)
[2017-10-19] MEDS: NICOTINE 21 MG/24 HR PATCH.TD24 TD SCH (09:39)
[2017-10-19] MEDS: FAMOTIDINE INJ/PF 20 MG/2 ML SDV IV SCH (09:39)
[2017-10-19] MEDS ORDERED: BUPIVACAINE HCL 0.25% /EPINEPHRINE INJ/PF 30 ML SDV ONE (10:49)
[2017-10-19] MEDS ORDERED: MIDAZOLAM 2 MG/2 ML INJ ONE (10:52)
[2017-10-19] MEDS ORDERED: FENTANYL CITRATE INJ/PF 100 MCG/2 ML AMPUL ONE ×2 (10:52)
[2017-10-19] MEDS ORDERED: ACETAMINOPHEN 100 ML IV ONE (10:53)
[2017-10-19] MEDS ORDERED: MORPHINE SULFATE 10 MG/ML INJ ONE (10:53)
[2017-10-19] MEDS ORDERED: PROPOFOL INJ 200 MG/20 ML VIAL IV ONE (10:53)
[2017-10-19] MEDS ORDERED: DEXMEDETOMIDINE INJ 80 MCG/20 ML VIAL IV ONE (12:21)
[2017-10-19] MEDS ORDERED: FENTANYL CITRATE INJ/PF 100 MCG/2 ML AMPUL IV PRN (12:54)
[2017-10-19] MEDS ORDERED: DIPHENHYDRAMINE HCL 50 MG/ML VIAL IV PRN (12:54)
[2017-10-19] MEDS ORDERED: PROMETHAZINE HCL INJ 25 MG/1 ML VIAL IV PRN (12:54)
[2017-10-19] MEDS ORDERED: MEPERIDINE HCL/PF INJ 25 MG/1 ML DISP.SYRIN IV PRN (12:54)
[2017-10-19] MEDS ORDERED: MORPHINE SULFATE 10 MG/ML INJ IV PRN (12:54)
[2017-10-19] MEDS ORDERED: EPHEDRINE SULFATE INJ 50 MG/1 ML AMPULE ONE (13:58)
[2017-10-19] MEDS: PROMETHAZINE HCL INJ 25 MG/1 ML VIAL ONE ×2 (15:15→15:20)
[2017-10-19] MEDS ORDERED: OXYCODONE-ACETAMINOPHEN 5-325 MG TABLET PO PRN (15:20)
--- NOTE | 2017-10-19 18:23 | OPERATIVE REPORT E ---
Operative Report NAME: COSMO GRADY : 1985 AGE: 32Y DATE OF SURGERY: 10/19/2017 ROOM: 210 PREOPERATIVE DIAGNOSIS: GALLSTONE PANCREATITIS WITH CHRONIC CALCULOUS CHOLECYSTITIS. POSTOPERATIVE DIAGNOSIS: GALLSTONE PANCREATITIS WITH CHRONIC CALCULOUS CHOLECYSTITIS. OPERATION: Laparoscopic cholecystectomy. SURGEON: TYLER SINGER M.D. ANESTHESIA: General. INDICATIONS: This is a 32-year-old male who is noted to have a common bile duct stone and underwent ERCP with stone extraction on 10/17/17. Patient needs a laparoscopic cholecystectomy, because of the chronic cholecystitis with cholelithiasis and also to avoid recurrence of passage of common bile duct stone. PROCEDURE: After adequate general anesthesia, patient was placed in supine position and the abdomen prepped and draped in the usual sterile fashion. An appropriate timeout was called. Next, an infraumbilical incision was made and the fascia opened. Finger dissection of the infraperitoneal area was done. Unfortunately, there appeared to be more adhesions, and unable to open towards the peritoneal cavity. Because of this, another incision was made on the right upper quadrant more lateral, and a trocar inserted. Camera placed through the trocar. CO2 infused to a pressure of 15 mmHg. At this time, the infraumbilical incision appeared to be fairly clear of significant adhesions. Next, the Marco trocar was then placed in the infraumbilical fascia area, and the camera then inserted into the infraumbilical site. Next, a 12-mm trocar placed at the subxiphoid and two 5-mm in the right upper quadrant, under direct vision. Patient noted to have gallbladder that was distended, with thickened wall. The bile was then suctioned from the gallbladder through a long needle. About 80 mL of bile were removed, allowing graspers to be placed in the gallbladder. Next, a grasper placed at the end of the gallbladder. Patient had a lot of adhesions around the anterior aspect of the gallbladder that were mostly lysed bluntly and with the use of Harmonic milton. However, there was a thick adhesion on the mid part of the gallbladder, medial part of the liver, making dissection quite difficult. Also, this adhesion appeared to have a piece of small bowel close to it. Next, the gallbladder was then gently dissected and debrided of the adhesions through the use of Harmonic milton. Eventually, we were able to go into the infundibulum. Prior to this, an attempt was made to do a retrograde cholecystectomy, but it was quite difficult because the gallbladder was quite pliable after evacuating the bile and the liver was somewhat fatty, causing some bleeding. This was then given up and an attempt was made to dissect the mid part of the gallbladder adhesion, but again, we got into a lot of bleeding. The bleeding, however, was controlled with the use of Harmonic milton and cautery. We finally were able to go back into the cystic duct dissection, and this time, cystic duct was noted to be somewhat dilated. However, was able to put 3 clips proximally and another clip to the area of the gallbladder. The cystic duct was then divided between the proximal clips. Next, the cystic artery also identified and clipped, divided and cauterized with the use of Harmonic milton. Gallbladder was then taken off the liver bed with the use of Harmonic milton. Adhesions also on the mid part of the gallbladder to the liver area were then also lysed through the use of Harmonic milton and with hook cautery. Added to the difficulty of the dissection, the visibility was quite difficult; therefore, another trocar was placed in the midabdomen, towards the midline, and a fan retractor was placed. The fan retractor was used to push down the fatty tissue and omentum for better visibility of the cystic duct area. The cystic duct was then dissected and noted to be somewhat enlarged and quite close to the common bile duct. The anterior part of the cystic duct had thickened peritoneum, which was cleared with the use of Harmonic milton. I eventually was able to place 3 clips on the cystic duct and another clip towards the area of the gallbladder. The cystic duct was divided within the proximal clips. Cystic artery also clipped and divided with the use of Harmonic milton. Gallbladder was then taken off the liver bed with the use of Harmonic milton and the adhesions taken down with the use of Harmonic milton and hook cautery. The gallbladder was then almost completely taken out, and while the gallbladder was still attached to the liver, the liver bed was irrigated and noted to have some oozing, which was controlled with the use of hook cautery. Next, then the gallbladder was then completely removed with the use of Harmonic milton. The gallbladder was then placed into an Endo bag and pulled out through the umbilical port. There were a couple of stones that were extruded out of the gallbladder during the procedure, and these were retrieved with the use of the large suction. Following this, the trocars were put back into the umbilicus and liver bed again inspected. There was a little oozing noted, and this was then controlled with the use of FloSeal and also reinforced with Surgicel. Following this, the area was suctioned out of some clots, as well as down into the area of the pelvis. Lots of clots were retrieved and removed. There was a 10-mm Daniel-Pires drain brought out through the right lateral-most trocar site and anchored to the skin with 2-0 nylon. Drain was placed around the area of the liver bed. Following this, all the trocars were removed and CO2 allowed to come out through the trocar sites. The infraumbilical fascial defect was then closed with ekwfor-fr-ziryl suture using 0 Vicryl. All the skin incisions were then closed with running subcuticular 4-0 Vicryl undyed. Dermabond dressings were used on all the incisions. Patient tolerated procedure quite well and brought to the recovery room in satisfactory condition. Needle, instrument and sponge counts were all correct. Estimated blood loss about 200 mL. DICTATING PHYSICIAN: TYLER SINGER M.D. [id number] PHY#: [id number] ID: [id number] JOB#: [id number] ACCT: [id number] cc:TYLER SINGER M.D. >
[2017-10-19] MEDS ORDERED: ROCURONIUM BROMIDE INJ 50 MG/5 ML VIAL IV ONE (20:34)
[2017-10-19] MEDS ORDERED: NEOSTIGMINE METHYLSULFATE 10 MG/10 ML VIAL ONE (20:34)
[2017-10-19] MEDS ORDERED: DEXAMETHASONE SOD PHOSPHATE INJ 4 MG/1 ML VIAL ONE (20:34)
[2017-10-19] MEDS ORDERED: GLYCOPYRROLATE INJ 0.4 MG/2 ML VIAL ONE (20:34)
[2017-10-19] MEDS ORDERED: ONDANSETRON HCL INJ/PF 4 MG/2 ML SDV ONE (20:34)
[2017-10-19] MEDS ORDERED: SUCCINYLCHOLINE CHLORIDE INJ 200 MG/10 ML VIAL ONE (20:34)
[2017-10-19] MEDS ORDERED: HYDROMORPHONE HCL INJ/PF 2 MG/ML AMPULE ONE (22:31)
[2017-10-19] MEDS ORDERED: LORAZEPAM INJ 2 MG/1 ML VIAL ONE (22:33)
[2017-10-19] MEDS ORDERED: HYDROMORPHONE HCL INJ/PF 2 MG/ML AMPULE IV ONE (23:15)
[2017-10-19] MEDS ORDERED: LORAZEPAM INJ 2 MG/1 ML VIAL IV ONE (23:15)
[2017-10-20] MEDS ORDERED: SIMETHICONE 80 MG TAB.CHEW PO PRN (00:36)
[2017-10-20] MEDS ORDERED: LORAZEPAM INJ 2 MG/1 ML VIAL IV ONE (01:00)
[2017-10-20] MEDS ORDERED: HYDROMORPHONE HCL INJ/PF 2 MG/ML AMPULE IV ONE (01:00)
[2017-10-20] MEDS: OXYCODONE-ACETAMINOPHEN 5-325 MG TABLET PO PRN ×3 (02:44→11:16)
[2017-10-20] MEDS: PIPERACILLIN SODIUM/TAZOBACTAM 3.375 GM in NORMAL SALINE 100 ML IV SCH ×2 (02:45→09:14)
[2017-10-20 07:27] LABS: MEAN CORPUSCULAR HEMOGLOBIN 29.9 pg (27.0-33.4); MEAN CORPUSCULAR VOLUME 88 fl (80-97); PLATELET COUNT 381 10^3/uL (150-450); RED BLOOD COUNT 4.66 10^6/uL (4.35-5.55); RED CELL DISTRIBUTION WIDTH 15.3 % (11.5-14.0); WHITE BLOOD COUNT 23.9 10^3/uL (4.0-10.5)
[2017-10-20 07:38] LABS: ALANINE AMINOTRANSFERASE 114 U/L (21-72); ALKALINE PHOSPHATASE 81 U/L (38-126); ASPARTATE AMINO TRANSFERASE 47 U/L (17-59); BILIRUBIN,DIRECT 0.4 mg/dL (0.0-0.4); BILIRUBIN,TOTAL 0.7 mg/dL (0.2-1.3); BLOOD UREA NITROGEN 13 mg/dL (7-20); CALCIUM 9.3 mg/dL (8.4-10.2); CHLORIDE 106 mmol/L (98-107); GLUCOSE 111 mg/dL (75-110); POTASSIUM 4.1 mmol/L (3.6-5.0); SODIUM 140.2 mmol/L (137-145)
[2017-10-20 07:40] LABS: ALBUMIN 3.4 g/dL (3.5-5.0); ANION GAP 6 (5-19); CARBON DIOXIDE 28 mmol/L (22-30); TOTAL PROTEIN 6.2 g/dL (6.3-8.2)
[2017-10-20 07:52] LABS: ABSOLUTE LYMPHOCYTES# (MANUAL) 6.2 10^3/uL (0.5-4.7); ABSOLUTE MONOCYTES # (MANUAL) 1.9 10^3/uL (0.1-1.4); ABSOLUTE NEUTROPHILS# (MANUAL) 15.8 10^3/uL (1.7-8.2); BASOPHILS % (MANUAL) 0 % (0-2); EOSINOPHILS % (MANUAL) 0 % (0-6); LYMPHOCYTES % (MANUAL) 26 % (13-45); MONOCYTES % (MANUAL) 8 % (3-13); SEGMENTED NEUTROPHILS % (MAN) 66 % (42-78); TOTAL CELLS COUNTED 100
[2017-10-20 07:53] LABS: ANISOCYTOSIS SLIGHT; HYPOCHROMASIA SLIGHT
[2017-10-20 07:54] LABS: PLATELET COMMENT ADEQUATE
[2017-10-20 07:55] LABS: HEMOGLOBIN 13.9 g/dL (13.5-17.0)
[2017-10-20] MEDS: FAMOTIDINE INJ/PF 20 MG/2 ML SDV IV SCH (09:14)
[2017-10-20] MEDS: NICOTINE 21 MG/24 HR PATCH.TD24 TD SCH (09:14)
[2017-10-20 13:51] VITALS: BP 134/101
--- NOTE | 2017-10-21 09:19 | DISCHARGE SUMMARY E ---
Discharge Summary NAME: COSMO GRADY : 1985 AGE: 32Y ADMITTED: 10/16/2017 DISCHARGED: 10/20/2017 REASON FOR ADMISSION: Acute abdominal pain. SUMMARY OF HOSPITALIZATION: Patient is a 32-year-old, obese, white male, history of splenectomy for thrombocytopenia, who presented to the emergency department complaining of acute onset of abdominal pain, worse after eating greasy foods. He was evaluated in the emergency department, where he was found to have abnormality of his liver function studies with a total bilirubin of 4; CT scan of the abdomen and pelvis showed findings consistent with cholecystitis, pericholecystic fluid, gallbladder wall thickening and tiny stones in the gallbladder fundus. Surgery was consulted and the patient was admitted to the surgical services. The patient was kept NPO on IV fluids. The following day, he was evaluated by Dr. Melody Weston, offensive coordinator, where he was subsequently taken to the operating room and underwent ERCP, sphincterotomy and stone extraction of an 8 mm common bile duct stone. The patient tolerated this well. Two days later, the patient underwent laparoscopic cholecystectomy by Dr. Tyler Singer with drain placement. He tolerated this well. Postprocedure, he did well, tolerated a diet and drain was removed the following day. Of note, the patient did have a leukocytosis of 19-24,000 postoperatively. The patient reports he occasionally has elevated white blood cell count following splenectomy. At this point on postoperative day 1, the patient was felt to have received maximum benefit from hospitalization and was discharged home. FINAL DIAGNOSES: 1. SYMPTOMATIC CHOLELITHIASIS WITH CHOLECYSTITIS, STATUS POST LAPAROSCOPIC CHOLECYSTECTOMY BY DR. TYLER SINGER. 2. SYMPTOMATIC CHOLEDOCHOLITHIASIS STATUS POST ENDOSCOPIC RETROGRADE CHOLANGIOPANCREATOGRAPHY, SPHINCTEROTOMY, STONE EXTRACTION BY DR. MELODY CHAPPELL. 3. HISTORY OF SPLENECTOMY. 4. MORBID OBESITY. DISPOSITION: The patient was discharged him in the care of his family. Follow up with Dr. Andres or teammate at [facility] in approximately 1-2 weeks. He will have a CBC checked prior to that appointment; if the patient becomes symptomatic, he is to call our office or the emergency department in the interim. He is given a prescription for pain medication. DICTATING PHYSICIAN: GEN ANDRES M.D. [id number] Y#: [id number] ID: [id number] JOB#: [id number] ACCT: [id number] cc:Diann WELDON M.D. >
== END 2017-10-20 14:03 | disposition home or self-care (01) | DRG 418 ==
LOC: ER 08:20 → EH 18:59 → UNDOADMIN 18:59 → 2N 22:33
PROVIDERS: ATTEND Surgery
PROC: 0F798ZZ Dilation of Common Bile Duct, Via Natural or Artificial Opening Endoscopic (ICD-10-PCS; 2017-10-17)
PROC: 0FC98ZZ Extirpation of Matter from Common Bile Duct, Via Natural or Artificial Opening Endoscopic (ICD-10-PCS; 2017-10-17 18:00)
PROC: 0FT44ZZ Resection of Gallbladder, Percutaneous Endoscopic Approach (ICD-10-PCS; principal; 2017-10-19 11:00)
DX: K80.65 Calculus of gallbladder and bile duct with chronic cholecystitis with obstruction (principal); Z68.43 Body mass index [BMI] 50.0-59.9, adult; E66.01 Morbid (severe) obesity due to excess calories; F17.210 Nicotine dependence, cigarettes, uncomplicated
CPT/HCPCS: 36415; 43262; 43264; 732; 74022; 74177; 74328; 76705; 790; 80053; 80076; 81001; 83690; 85025; 85027; 87040; 87070; 87075; 87086; 87205; 88304; 93005; 93010; 96361; 96374; 96375; 96376; 99285; J0131; J0330; J1100; J1170; J1200; J1610; J2060; J2250; J2270; J2405; J2543; J2550; J2704; J2765; J3010; J3490; J7030; J7120; J7620; S0028

== ENCOUNTER 2018-02-14 17:36 | Emergency (ER) | payer MEDICAID ==
[2018-02-14 17:56] VITALS: BP 163/104
--- NOTE | 2018-02-14 17:59 | ER Document Report ---
ED Neuro Symptoms/Deficit - General Chief Complaint: Neck Problem Stated Complaint: NECK PAIN, EAR PAIN,FACIAL WEAKNESS Notes: The patient is a 32-year-old male who presents with 1 day of right-sided facial weakness and mild pain in his right ear. Denies tick bites, difficulty swallowing, focal extremity weakness or numbness, difficulty walking, headache, nausea, vomiting or rash. TRAVEL OUTSIDE OF THE [place] IN LAST 30 DAYS: No - Related Data Allergies/Adverse Reactions: No Known Allergies Allergy (Verified 10/16/17 08:20) Past Medical History - General Information source: Patient - Social History Smoking Status: Current Every Day Smoker Chew tobacco use (# tins/day): No Frequency of alcohol use: None Drug Abuse: None Family History: Reviewed & Not Pertinent Patient has suicidal ideation: No Patient has homicidal ideation: No Renal/ Medical History: Denies: Hx Peritoneal Dialysis Past Surgical History: Reports: Hx Abdominal Surgery - Splenectomy 2014 - Immunizations Hx Diphtheria, Pertussis, Tetanus Vaccination: Yes Hx Pneumococcal Vaccination: 05/11/15 Review of Systems - Review of Systems Notes: REVIEW OF SYSTEMS: CONSTITUTIONAL: -fevers, -chills EENT: -eye pain, -difficulty swallowing, -nasal congestion CARDIOVASCULAR: -chest pain, -syncope. RESPIRATORY: -cough, -SOB GASTROINTESTINAL: -abdominal pain, -nausea, -vomiting, -diarrhea GENITOURINARY: -dysuria, -hematuria MUSCULOSKELETAL: -back pain, -neck pain SKIN: -rash or skin lesions. HEMATOLOGIC: -easy bruising or bleeding. LYMPHATIC: -swollen, enlarged glands. NEUROLOGICAL: -altered mental status or loss of consciousness, -headache, +right -sided facial weakness PSYCHIATRIC: -anxiety, -depression. ALL OTHER SYSTEMS REVIEWED AND NEGATIVE. Physical Exam - Vital signs Vitals: Temp Pulse Resp BP Pulse Ox 98.5 F 98 18 163/104 H 96 02/14/18 17:50 02/14/18 17:50 02/14/18 17:50 02/14/18 17:50 02/14/18 17:50 - Notes Notes: PHYSICAL EXAMINATION: GENERAL: Well-appearing, well-nourished and in no acute distress. HEAD: Atraumatic, normocephalic. EYES: Pupils equal round and reactive to light, extraocular movements intact, sclera anicteric, conjunctiva are normal. ENT: nares patent, oropharynx clear without exudates. Moist mucous membranes. No vesicles in ear canals or on TMs. NECK: Normal range of motion, supple without lymphadenopathy LUNGS: Breath sounds clear to auscultation bilaterally and equal. No wheezes rales or rhonchi. HEART: Regular rate and rhythm without murmurs ABDOMEN: Soft, nontender, normoactive bowel sounds. No guarding, no rebound. No masses appreciated. EXTREMITIES: Normal range of motion, no pitting or edema. No cyanosis. NEUROLOGICAL: Right-sided facial droop, unable to wrinkle right side of forehead or close eyes. 5/5 strength and sensation intact in all 4 extremities. PSYCH: Normal mood, normal affect. SKIN: Warm, Dry, normal turgor, no rashes or lesions noted. Course - Re-evaluation Re-evalutation: Patient with right-sided facial droop and unable to wrinkle his forehead. Symptoms are consistent with Boo's palsy. No signs of a central neuro process. Spoke to patient about risks and benefits of steroids and he elects to take the Valtrex. Also provided him with steroids and instructions about keeping his eyes shut at night and lubricated during the day using tape and lubrication drops. Given return precautions and he understands. - Vital Signs Vital signs: Temp Pulse Resp BP Pulse Ox 98.5 F 98 18 163/104 H 96 02/14/18 17:50 02/14/18 17:50 02/14/18 17:50 02/14/18 17:50 02/14/18 17:50 Discharge - Discharge Clinical Impression: Right-sided Boo's palsy Condition: Stable Disposition: HOME, SELF-CARE Additional Instructions: Take the steroids as directed. You may also take the antivirals. Use artificial tears every hour you are awake and tape your eyes and wear a protective eye shield at night. [place]' Palsy You have been diagnosed as having Boo's Palsy -- a paralysis of certain muscles of the face. It's caused by a temporary paralysis of the nerve which controls the muscles. The cause is unknown, but it's thought to be caused by a virus in most cases. The physician's exam shows that this is NOT a stroke. Boo's Palsy usually gets better by itself. There is no cure. Sometimes cortisone-type medication is given to decrease nerve swelling. This problem is usually temporary, lasting about three weeks. During that time, you must protect the eye from injury (because the eyelid muscles often do not cover it). Ointment or a patch may be necessary. Be sure to follow up as instructed, and call the doctor at once if new symptoms arise. Report any eye pain, decreasing vision or double vision, or any numbness or weakness outside the face area. Prescriptions: Prednisone [Deltasone 20 mg Tablet] 3 tab PO DAILY 7 Days tablet Valacyclovir HCl [Valacyclovir] 1,000 mg PO TID 7 Days tablet Forms: Elevated Blood Pressure Referrals: MI SPENCER MD [NO LOCAL MD] - Follow up as needed
== END 2018-02-14 18:01 | disposition home or self-care (01) ==
LOC: ER 17:36
DX: G51.0 Bell's palsy (principal); H92.01 Otalgia, right ear; F17.200 Nicotine dependence, unspecified, uncomplicated
CPT/HCPCS: 99283